=== PATIENT | male | born 1980 | race Caucasian/White ===

== ENCOUNTER 2023-04-30 15:59 | Outpatient (CLI) | payer SELFPAY | END 2023-05-11 16:00 | disposition home or self-care (01) | LOC: AMB 06-15 11:20 | PROVIDERS: Visit Provider Student in an Organized Health Care Education/Training Program | DX: T14.90XA Injury, unspecified, initial encounter (principal); V53.5XXA Driver of pick-up truck or van injured in collision with car, pick-up truck or van in traffic accident, initial encounter; Y92.410 Unspecified street and highway as the place of occurrence of the external cause | CPT/HCPCS: A0998 ==